=== PATIENT | female | born 2000 | race Two or more races ===

== ENCOUNTER 2019-06-11 12:39 | Emergency (ER) | payer BC ==
[2019-06-11 12:51] VITALS: BP 110/65; PULSE 99; TEMP 98.5; BMI 24.5
--- NOTE | 2019-06-11 14:16 | PDOC ---
History of Present Illness - General Chief Complaint: Cold Symptoms Stated Complaint: FLU SYS Time Seen by Provider: 06/11/19 13:02 - History of Present Illness Initial Comments: 06/11/19 14:13 19-year-old female presents for upper respiratory symptoms x1 month Past History - Past Medical History Allergies/Adverse Reactions: Allergies Allergy/AdvReac Type Severity Reaction Status Date / Time No Known Allergies Allergy Verified 06/11/19 12:48 Home Medications: Ambulatory Orders Amox-Tr/K Cl [Augmentin - 875Mg Tablet] 1 tab PO BID #20 tablet 06/11/19 Budesonide [Rhinocort Allergy] 1 spray NS ONCE #1 spray.pump 06/11/19 Anemia: Yes COPD: No - Immunization History Immunization Up to Date: Yes - Psycho Social/Smoking Cessation Hx Smoking Status: No Smoking History: Never smoked Number of Cigarettes Smoked Daily: 0 Hx Alcohol Use: No Drug/Substance Use Hx: No Review of Systems - Review of Systems Constitutional: Yes: Fever HEENTM: Yes: Nose Pain, Nose Congestion Respiratory: Yes: Cough *Physical Exam - Vital Signs Last Vital Signs Temp Pulse Resp BP Pulse Ox 98.5 F 99 H 18 110/65 98 06/11/19 12:48 06/11/19 12:48 06/11/19 12:48 06/11/19 12:48 06/11/19 12:48 - Physical Exam 06/11/19 14:14 GENERAL: The patient is awake, alert, and fully oriented, in no acute distress. HEAD: Normal with no signs of trauma. EYES: sclera anicteric, conjunctiva clear. ENT: Ears normal tympanic membranes normal oropharynx clear uvula midline NECK: Normal range of motion LUNGS: Breath sounds equal, clear to auscultation bilaterally. No wheezes, and no crackles. HEART: S1 and S2 without murmur, rub or gallop. ABDOMEN: Soft, nontender, normoactive bowel sounds. No guarding, no rebound. No masses. EXTREMITIES: Normal range of motion, no edema. No clubbing or cyanosis. No cords, erythema, or tenderness. NEUROLOGICAL: Cranial nerves II through XII grossly intact. Normal speech, normal gait. PSYCH: Normal mood, normal affect. SKIN: Warm, Dry, normal turgor, no rashes or lesions noted. ED Treatment Course - RADIOLOGY Radiology Studies Ordered: Category Date Time Status CHEST PA & LAT [RAD] Stat Radiology 06/11/19 13:50 Taken Medical Decision Making - Medical Decision Making 06/11/19 14:14 Most likely a sinusitis will treat appropriately follow-up with primary care physician Discharge - Discharge Information Problems reviewed: Yes Clinical Impression/Diagnosis: Sinusitis Condition: Stable Disposition: HOME - Admission No - Additional Discharge Information Prescriptions: Amox-Tr/K Cl [Augmentin - 875Mg Tablet] 1 tab PO BID #20 tablet Budesonide [Rhinocort Allergy] 1 spray NS ONCE #1 spray.pump - Follow up/Referral Referrals: Danie Louis MD [Staff Physician] - - Patient Discharge Instructions Patient Printed Discharge Instructions: Sinusitis Additional Instructions: Please take the antibiotics and use nasal spray as directed. Without fail follow-up with internal medicine in 1 to 2 days for further evaluation and treatment options and return to the emergency room should symptoms worsen. Tylenol and Motrin for any fevers as directed. - Post Discharge Activity
== END 2019-06-11 14:49 | disposition home or self-care (01) ==
LOC: JERFT 12:39
DX: J32.9 Chronic sinusitis, unspecified (principal)
CPT/HCPCS: 71046-TC-FY; 99281-25

== ENCOUNTER 2019-08-04 16:29 | Emergency (ER) | payer BC ==
[2019-08-04 16:59] VITALS: BP 109/51; PULSE 68; TEMP 97.8; BMI 23.1
[2019-08-04] MEDS ORDERED: IBUPROFEN 400 MG TABLET (FP) PO ONE ×2 (17:46→18:51)
--- NOTE | 2019-08-04 18:02 | PDOC ---
History of Present Illness - General Chief Complaint: Pain Stated Complaint: ABD Time Seen by Provider: 08/04/19 16:51 History Source: Patient - History of Present Illness Timing/Duration: reports: constant Quality: reports: moderate Abdominal Pain Onset Location: reports: suprapubic Past History - Past Medical History Allergies/Adverse Reactions: Allergies Allergy/AdvReac Type Severity Reaction Status Date / Time No Known Allergies Allergy Verified 06/11/19 12:48 Home Medications: Ambulatory Orders Amox-Tr/K Cl [Augmentin - 875Mg Tablet] 1 tab PO BID #20 tablet 06/11/19 Budesonide [Rhinocort Allergy] 1 spray NS ONCE #1 spray.pump 06/11/19 Ibuprofen [Motrin -] 600 mg PO QID #28 tablet 08/04/19 Anemia: Yes COPD: No - Immunization History Immunization Up to Date: Yes - Psycho Social/Smoking Cessation Hx Smoking Status: No Smoking History: Never smoked Number of Cigarettes Smoked Daily: 0 Information on smoking cessation initiated: No Hx Alcohol Use: No Drug/Substance Use Hx: No Review of Systems - Review of Systems Constitutional: No: Chills, Fever ABD/GI: Yes: Abdominal cramping. No: Constipated, Diarrhea, Nausea, Vomiting : No: Burning, Dysuria, Discharge, Flank Pain, Hematuria *Physical Exam - Vital Signs Last Vital Signs Temp Pulse Resp BP Pulse Ox 97.8 F 68 17 109/51 L 99 08/04/19 16:55 08/04/19 16:55 08/04/19 16:55 08/04/19 16:55 08/04/19 16:55 - Physical Exam General Appearance: Yes: Appropriately Dressed, Mild Distress HEENT: positive: Normal Voice Neck: positive: Supple Respiratory/Chest: negative: Respiratory Distress Female Pelvic Exam: positive: normal external exam, adnexal tenderness (on the R ). negative: CMT, discharge, lesions, vaginal bleeding Gastrointestinal/Abdominal: positive: Normal Bowel Sounds, Tender (to R suprapubic, NT over mcburneys), Soft. negative: Distended, Guarding, Rebound Musculoskeletal: negative: CVA Tenderness Integumentary: positive: Dry, Warm Neurologic: positive: Fully Oriented, Alert, Normal Mood/Affect Medical Decision Making - Medical Decision Making 08/04/19 17:44 19 yo F, h/o known R ovarian cyst w/ chronic R pelvic pain, worsened today. No n /v/f/c. Has [employer] appt this week to discuss ? surgery. No n/v/f/c. No vaginal discharge or dysuria see exam R/o torsion -pain control -ua -US 08/04/19 18:58 Ultrasound read as 2 x 2 cm R ovarian cyst with no evidence of torsion. On reassessment, patient states she is feeling better with Motrin. Will DC with pain control and to follow-up with her [employer] this Sunday as already scheduled. Reasons to return to ED discussed with patient Discharge - Discharge Information Problems reviewed: Yes Clinical Impression/Diagnosis: Pelvic pain Ovarian cyst Qualifiers: Laterality: right Qualified Code(s): N83.201 - Unspecified ovarian cyst, right side Condition: Improved Disposition: HOME - Additional Discharge Information Prescriptions: Ibuprofen [Motrin -] 600 mg PO QID #28 tablet - Follow up/Referral Referrals: Yuval Cazares MD [Primary Care Provider] - - Patient Discharge Instructions Patient Printed Discharge Instructions: Ovarian Cyst Additional Instructions: The ultrasound shows a 2.3x2.3cm right ovarian cyst but no evidence of complication at this time Take Motrin as directed for pain and follow-up with your [employer] this week as already scheduled - Post Discharge Activity
[2019-08-04 18:18] LABS: URINE APPEARANCE TURBID; URINE BILIRUBIN NEGATIVE (NEGATIVE); URINE COLOR YELLOW; URINE GLUCOSE (UA) NEGATIVE (NEGATIVE); URINE KETONE NEGATIVE (NEGATIVE); URINE LEUK ESTERASE NEGATIVE (NEGATIVE); URINE NITRITE NEGATIVE (NEGATIVE); URINE PROTEIN NEGATIVE (NEGATIVE); URINE UROBILINOGEN 0.2 mg/dL (0.2-1.0)
== END 2019-08-04 19:07 | disposition home or self-care (01) ==
LOC: JER 16:29
DX: N83.201 Unspecified ovarian cyst, right side (principal)
CPT/HCPCS: 76830-TC; 81003; 84703; 99284-25

== ENCOUNTER 2019-08-05 23:59 | Emergency (ER) | payer BC ==
[2019-08-06 00:02] VITALS: BMI 23.5
--- NOTE | 2019-08-06 00:31 | PDOC ---
*Physical Exam - Vital Signs Last Vital Signs Temp Pulse Resp BP Pulse Ox 97.9 F 71 18 107/53 L 98 08/06/19 00:00 08/06/19 00:00 08/06/19 00:00 08/06/19 00:00 08/06/19 00:00 ED Treatment Course - LABORATORY CBC & Chemistry Diagram: 08/06/19 01:33 08/06/19 01:33 Medical Decision Making - Medical Decision Making 08/06/19 00:30 Patient seen by the advanced practice provider under my supervision. Ancillary testing reviewed as necessary. I agree with plan as outlined by the advanced practice provider. Discharge - Discharge Information Problems reviewed: Yes Clinical Impression/Diagnosis: Abdominal pain Qualifiers: Abdominal location: right lower quadrant Qualified Code(s): R10.31 - Right lower quadrant pain - Follow up/Referral Referrals: Yuval Cazares MD [Primary Care Provider] - - Patient Discharge Instructions - Post Discharge Activity
--- NOTE | 2019-08-06 00:56 | PDOC ---
History of Present Illness - General Chief Complaint: Pain Stated Complaint: ABD PAIN Time Seen by Provider: 08/06/19 00:29 History Source: Patient - History of Present Illness Initial Comments: 08/06/19 01:49 19-year-old female complaining of right-sided pelvic pain. Patient was seen in this ER yesterday. UA and transvaginal ultrasound was done transvaginal ultrasound shows a 2 cm ovarian cyst. Patient reports that since she has been home the pain has increased and patient is now getting pain relief with ibuprofen. Denies nausea, vomiting, fever, urinary symptoms Past History - Past Medical History Allergies/Adverse Reactions: Allergies Allergy/AdvReac Type Severity Reaction Status Date / Time No Known Allergies Allergy Verified 08/06/19 00:02 Home Medications: Ambulatory Orders Amox-Tr/K Cl [Augmentin - 875Mg Tablet] 1 tab PO BID #20 tablet 06/11/19 Budesonide [Rhinocort Allergy] 1 spray NS ONCE #1 spray.pump 06/11/19 Ibuprofen [Motrin -] 600 mg PO QID #28 tablet 08/04/19 Doxycycline Hyclate [Vibratab -] 100 mg PO BID #14 tablet 08/06/19 Polyethylene Glycol 3350 [Miralax (For Daily Use) -] 17 gm PO BID #1 bottle 09/21 Anemia: Yes COPD: No - Immunization History Immunization Up to Date: Yes - Psycho Social/Smoking Cessation Hx Smoking Status: No Smoking History: Never smoked Number of Cigarettes Smoked Daily: 0 Hx Alcohol Use: No Drug/Substance Use Hx: No Review of Systems - Review of Systems Able to Perform ROS?: Yes Is the patient limited Ukrainian proficient: No Constitutional: No: Symptoms Reported, See HPI, Chills, Diaphoresis, Fever, Loss of Appetite, Malaise, Night Sweats, Weakness, Weight Stable, Unintentional Wgt. Loss, Unexplained wgt Loss, Other ABD/GI: Yes: Abdominal cramping *Physical Exam - Vital Signs Last Vital Signs Temp Pulse Resp BP Pulse Ox 97.9 F 71 18 107/53 L 98 08/06/19 00:00 08/06/19 00:00 08/06/19 00:00 08/06/19 00:00 08/06/19 00:00 - Physical Exam General Appearance: Yes: Appropriately Dressed Respiratory/Chest: positive: Lungs Clear, Normal Breath Sounds Female Pelvic Exam: positive: normal external exam, cervical os closed, adnexal tenderness (right adnexal tenderness), other (copious white vaginal discharge) Gastrointestinal/Abdominal: positive: Normal Bowel Sounds, Tender (zRLQ/ right pelvic pain) Extremity: positive: Normal Capillary Refill, Normal Inspection, Normal Range of Motion Integumentary: positive: Normal Color, Dry, Warm Neurologic: positive: Fully Oriented, Alert ED Treatment Course - LABORATORY CBC & Chemistry Diagram: 08/06/19 01:33 08/06/19 01:33 ED Progress Note - Progress Note Progress Note: 08/06/19 04:59 A: pelvic pain ; constipation p: cbc cmp IVF toradol GC Medical Decision Making - Medical Decision Making 08/06/19 02:12 08/06/19 01:58 Normal uterus. Normal homogeneous endometrial complex measuring 8.8 mm in thickness. There is a 1.3 cm x 1.1 cm x 8 mm right ovarian cyst. The right ovary is otherwise normal with positive Doppler blood flow. The left ovary is normal with positive Doppler blood flow. No free fluid. 08/06/19 04:16 CTAP: There are dilated periuterine veins left greater than right. Nonspecific but can be related to pelvic congestion syndrome which can be a cause of chronic pelvic pain.No bowel obstruction or inflammation. Negative for diverticulitis or colitis. Normal appendix. Relatively large stool burden in the right colon. Mildly feculent terminal ileum which could be due to stasis or incompetent ileocecal valve. Normal kidneys urinary tract and urinary bladder. There is a 1.6 cm right adnexal cyst. There is a small amount of free fluid in the pelvic cul-de-sac which is well visualized on this scan and to better advantage than on the ultrasound. Normal liver. No obvious gallbladder abnormalities. Normal spleen. Normal pancreas. 08/06/19 04:23 patient reports that partner and patient was tested for GC with PCP. reports negative will send gc. empirically start patient on doxycycline. 08/06/19 04:24 Discharge - Discharge Information Problems reviewed: Yes Clinical Impression/Diagnosis: Right ovarian cyst, PID (acute pelvic inflammatory disease), Pelvic pain Constipation Qualifiers: Constipation type: unspecified constipation type Qualified Code(s): K59.00 - Constipation, unspecified Disposition: HOME - Additional Discharge Information Prescriptions: Doxycycline Hyclate [Vibratab -] 100 mg PO BID #14 tablet Polyethylene Glycol 3350 [Miralax (For Daily Use) -] 17 gm PO BID #1 bottle - Follow up/Referral Referrals: Yuval Cazares MD [Primary Care Provider] - - Patient Discharge Instructions Patient Printed Discharge Instructions: DI for Pelvic Pain Additional Instructions: Drink plenty of fluids Take ibuprofen every 6 hours as needed for pain. Continue doxycycline as prescribed. Follow-up with your electromechanical assembler on sunday or as soon as possible. Return to the emergency room for any worsening symptoms - Post Discharge Activity Work/Back to School Note: Back to Work, Back to School
[2019-08-06] MEDS ORDERED: SODIUM CHLORIDE 1,000 ML IV STA (00:57)
[2019-08-06] MEDS ORDERED: KETOROLAC TROMETHAMINE 30 MG/1 ML VIAL IVPUSH ONE (00:57)
[2019-08-06] MEDS ORDERED: KETOROLAC TROMETHAMINE 30 MG/1 ML VIAL ONE (01:13)
[2019-08-06 02:47] LABS: ALBUMIN 3.6 g/dl (3.4-5.0); BILIRUBIN,TOTAL 0.2 mg/dL (0.2-1); CALCIUM 8.8 mg/dL (8.5-10.1); CREATININE 0.8 mg/dL (0.55-1.3); POTASSIUM 4.4 mmol/L (3.5-5.1); TOT PROT 6.3 g/dl (6.4-8.2)
[2019-08-06 02:53] LABS: BASO % 0.6 % (0-2.0); EOS % 1.9 % (0-4.5); HEMATOCRIT 37.5 % (32.4-45.2); HEMOGLOBIN 12.1 GM/dL (10.7-15.3); LYMPH % 33.9 % (8-40); MCH 26.8 pg (25.7-33.7); MCHC 32.2 g/dl (32.0-36.0); MEAN CELL VOLUME 83.3 fl (80-96); MEAN PLT VOLUME 9.9 fl (7.5-11.1); MONO % 8.1 % (3.8-10.2); NEUT % 55.5 % (42.8-82.8); PLATELET COUNT 201 K/MM3 (134-434); RBC 4.51 M/mm3 (3.60-5.2); RDW 14.5 % (11.6-15.6); WHITE BLOOD COUNT 11.6 K/mm3 (4.0-10.0)
[2019-08-06 04:11] LABS: PH,URINE 5.5 (5.0-8.0); URINE APPEARANCE CLEAR; URINE BILIRUBIN NEGATIVE (NEGATIVE); URINE COLOR YELLOW; URINE GLUCOSE (UA) NEGATIVE (NEGATIVE); URINE KETONE NEGATIVE (NEGATIVE); URINE LEUK ESTERASE NEGATIVE (NEGATIVE); URINE NITRITE NEGATIVE (NEGATIVE); URINE PROTEIN NEGATIVE (NEGATIVE); URINE UROBILINOGEN 0.2 mg/dL (0.2-1.0)
[2019-08-06] MEDS ORDERED: LIDOCAINE HCL 1%, 10 MG/ML (20ML VIAL) ONE (05:01)
[2019-08-06 05:15] VITALS: BP 107/63; PULSE 75; TEMP 98.2
--- NOTE | 2019-08-06 08:42 | EKG ---
Test Reason : Blood Pressure : / mmHG Vent. Rate : 066 BPM Atrial Rate : 066 BPM P-R Int : 138 ms QRS Dur : 084 ms QT Int : 422 ms P-R-T Axes : 074 085 055 degrees QTc Int : 442 ms NORMAL SINUS RHYTHM WITH SINUS ARRHYTHMIA NORMAL ECG NO PREVIOUS ECGS AVAILABLE Confirmed by MD KINJAL, BENY ([id number]) on 08/06/2019 8:42:41 AM Referred By: Confirmed By:BENY LAYTON MD
== END 2019-08-06 05:15 | disposition home or self-care (01) ==
LOC: JER 23:59
PROC: 3E02329 Introduction of Other Anti-infective into Muscle, Percutaneous Approach (ICD-10-PCS; principal; 2019-08-05)
PROC: 3E0333Z Introduction of Anti-inflammatory into Peripheral Vein, Percutaneous Approach (ICD-10-PCS; 2019-08-05)
DX: N83.201 Unspecified ovarian cyst, right side (principal); N73.9 Female pelvic inflammatory disease, unspecified; K59.00 Constipation, unspecified
CPT/HCPCS: 36415; 74177-TC; 76830-TC; 80053; 81003; 83690; 84703; 85025; 87491; 87591; 93005; 93010; 99285-25; J7030

== ENCOUNTER 2021-07-11 12:49 | Emergency (ER) | payer BC ==
[2021-07-11 13:02] VITALS: BMI 25.7
[2021-07-11 15:21] VITALS: BP 128/78; PULSE 77; TEMP 98.4
[2021-07-11 17:38] LABS: EPI CELLS 2 /uL (0-25.1); HYALINE CASTS 0 /uL (0-3.1); PH,URINE 5.5 (5.0-8.0); URINE APPEARANCE CLEAR; URINE BACTERIA 31 /uL (0-1359); URINE BILIRUBIN NEGATIVE (NEGATIVE); URINE COLOR YELLOW; URINE GLUCOSE (UA) NEGATIVE (NEGATIVE); URINE KETONE 1+ (NEGATIVE); URINE LEUK ESTERASE NEGATIVE (NEGATIVE); URINE NITRITE NEGATIVE (NEGATIVE); URINE PROTEIN NEGATIVE (NEGATIVE); URINE RBC 67 /uL (0-23.9); URINE UROBILINOGEN 0.2 mg/dL (0.2-1.0); URINE WBC 3 /uL (0-25.8)
[2021-07-11 18:15] LABS: BASO % 0.6 % (0-2.0); EOS % 0.6 % (0-4.5); HEMATOCRIT 43.8 % (32.4-45.2); HEMOGLOBIN 14.5 GM/dL (10.7-15.3); LYMPH % 27.9 % (8-40); MCH 27.3 pg (25.7-33.7); MEAN CELL VOLUME 82.7 fl (80-96); MEAN PLT VOLUME 9.3 fl (7.5-11.1); MONO % 6.4 % (3.8-10.2); NEUT % 64.5 % (42.8-82.8); PLATELET COUNT 225 10^3/uL (134-434); RDW 13.9 % (11.6-15.6); WHITE BLOOD COUNT 7.8 K/mm3 (4.0-10.0)
[2021-07-11 18:41] LABS: CALCIUM 9.5 mg/dL (8.5-10.1)
[2021-07-11 18:43] LABS: ALBUMIN 4.4 g/dl (3.4-5.0); BLOOD UREA NITROGEN 6.6 mg/dL (7-18)
[2021-07-11 18:45] LABS: CREATININE 0.7 mg/dL (0.55-1.3)
[2021-07-11 18:47] LABS: BILIRUBIN,TOTAL 0.4 mg/dL (0.2-1); TOT PROT 7.6 g/dl (6.4-8.2)
== END 2021-07-11 20:35 | disposition home or self-care (01) ==
LOC: JER 12:49
DX: N83.201 Unspecified ovarian cyst, right side (principal); N83.202 Unspecified ovarian cyst, left side
CPT/HCPCS: 36415; 76830-TC; 80053; 81003; 84703; 85025; 99284-25